=== PATIENT | male | born 1955 | race Hispanic/Latino ===

== ENCOUNTER 2021-04-06 14:02 | Emergency (ER) | payer OTHER ==
[2021-04-06 15:54] LABS: Potassium 3.4 mmol/L (3.5-5.1)
[2021-04-06 16:31] LABS: Basophils % 0.3 % (0-1.3); Hematocrit 40.9 % (39.6-49.0); Lymphocytes % 10.3 % (15.3-44.8); MPV 7.8 fL (7.6-11.3); RBC Red Blood Cell Count 4.89 M/uL (4.33-5.43)
[2021-04-06 17:18] LABS: Urine Blood 3+ (Negative); Urine Glucose Negative (Negative); Urine Protein 1+ (Negative)
--- NOTE | 2021-04-06 17:34 | ER ---
Nurse's Notes [facility] Name: Bhavin Marion Age: 65 yrs Sex: Male : 1955 Arrival Date: 04/06/2021 Time: 14:05 Bed 3 Private MD: Vu Cool R Diagnosis: Retention of urine, unspecified Presentation: 04/06 14:53 Chief complaint: Patient states: Urinary retention since last night. + dysuria. ll1 Coronavirus screen: Client denies travel out of the [place] in the last 14 days. At this time, the client does not indicate any symptoms associated with coronavirus-19. Ebola Screen: Patient denies travel to an Ebola-affected area in the 21 days before illness onset. Initial Sepsis Screen: Does the patient meet any 2 criteria? No. Patient's initial sepsis screen is negative. Does the patient have a suspected source of infection? Yes: Dysuria/Frequency/Urgency/UTI. Risk Assessment: Do you want to hurt yourself or someone else? Patient reports no desire to harm self or others. Onset of symptoms was April 05, 2021. 14:53 Method Of Arrival: Ambulatory ll1 14:53 Acuity: LIZBETH 3 ll1 Triage Assessment: 15:20 General: Appears well groomed, well developed, well nourished, Behavior is cooperative, es2 appropriate for age. Pain: Pain currently is 10 out of 10 on a pain scale. EENT: No signs and/or symptoms were reported regarding the EENT system. Neuro: Level of Consciousness is awake, alert, obeys commands, Oriented to person, place, time, situation, Appropriate for age Gait is steady, Speech is normal, Facial symmetry appears normal. Cardiovascular: Capillary refill < 3 seconds Patient's skin is warm and dry. Respiratory: Airway is patent Respiratory effort is even, unlabored, Respiratory pattern is regular, symmetrical. GI: Reports lower abdominal pain. : Reports inability to void, pain urgency. Derm: Skin is intact, Skin is dry, Skin is pink, warm \T\ dry. normal, Skin temperature is warm. Musculoskeletal: Capillary refill < 3 seconds, Range of motion: intact in all extremities. Historical: - Allergies: 14:51 Doxycycline; ll1 14:51 sulfamethoxazole-trimethoprim; ll1 - PMHx: 14:51 Hypertensive disorder; ll1 - PSHx: 14:51 R elbow; triple bypass; hernia repair x 2; back SX, L knee SX; heart stent; ll1 - Immunization history:: Client reports having NOT received the Covid vaccine. - Social history:: Smoking status: Patient/guardian denies using tobacco, the patient reports quitting approximately 8 years ago. - Family history:: not pertinent. - Hospitalizations: : No recent hospitalization is reported. Screenin:19 Abuse screen: Denies threats or abuse. Denies injuries from another. Nutritional es2 screening: No deficits noted. Tuberculosis screening: No symptoms or risk factors identified. Fall Risk None identified. IV access (20 points). Gait- Normal/Bed Rest/Wheelchair (0 pts). Assessment: 18:12 Reassessment: Patient and/or family updated on plan of care and expected duration. Pain es2 level reassessed. Patient is alert, oriented x 3, equal unlabored respirations, skin warm/dry/pink. General: Appears well groomed, well nourished, Behavior is calm, cooperative, appropriate for age. Pain: Pain currently is 8 out of 10 on a pain scale. Neuro: Level of Consciousness is awake, alert, obeys commands, Oriented to person, place, time, situation, Appropriate for age Gait is steady, Speech is normal. Cardiovascular: Capillary refill < 3 seconds Patient's skin is warm and dry. Respiratory: Airway is patent Respiratory effort is even, unlabored, Respiratory pattern is regular, symmetrical. GI: No signs and/or symptoms were reported involving the gastrointestinal system. : Reports burning with urination, inability to void, pain urgency. EENT: No signs and/or symptoms were reported regarding the EENT system. Derm: Skin is intact, Skin is dry, Skin is pink, warm \T\ dry. normal, Skin temperature is warm. Musculoskeletal: Capillary refill < 3 seconds, Range of motion: intact in all extremities. Vital Signs: 14:53 BP 168 / 93; Pulse 55; Resp 18; Temp 97.4; Pulse Ox 100% ; Weight 97.52 kg; Height 5 ll1 ft. 6 in. (167.64 cm); Pain 8/10; 18:10 BP 152 / 84; Pulse 62; Resp 18; Pulse Ox 100% on R/A; es2 14:53 Body Mass Index 34.70 (97.52 kg, 167.64 cm) ll1 ED Course: 14:05 Patient arrived in ED. am2 14:06 Vu Cool MD is Private Physician. am2 14:53 Arm band placed on. ll1 14:54 Triage completed. ll1 14:59 Jairo Ortiz MD is Attending Physician. rn 14:59 Rachael Packer RN is Primary Nurse. es2 15:19 Patient has correct armband on for positive identification. Bed in low position. Call es2 light in reach. 15:23 Warm blanket given. Pillow given. pit furnace melter on. Pulse ox on. NIBP on. mh5 15:29 Basic Metabolic Panel Sent. es2 15:29 CBC with Diff Sent. es2 15:29 Inserted saline lock: 20 gauge in left antecubital area, using aseptic technique. Blood es2 collected. 15:39 Valente cath inserted, using sterile technique, 18 Fr., by ED staff, balloon inflated, to es2 gravity drainage, urine specimen collected. 15:40 CBC with Diff Sent. es2 15:40 Basic Metabolic Panel Sent. es2 17:33 Anthony Kruse MD is Referral Physician. rn 18:11 No provider procedures requiring assistance completed. IV discontinued, intact, es2 bleeding controlled, No redness/swelling at site. Pressure dressing applied. Administered Medications: No medications were administered Outcome: 17:33 Discharge ordered by . rn 18:12 Discharged to home ambulatory. es2 18:12 Condition: stable 18:12 Discharge instructions given to patient, significant other, Instructed on discharge instructions, follow up and referral plans. medication usage, Demonstrated understanding of instructions, follow-up care, medications, Prescriptions given X 2. 18:20 Patient left the ED. es2 Signatures: Jairo Ortiz MD MD rn Martinez, Maria Leesa Zhou am2 Scott Vance RN RN 1 Rachael Packer RN RN es2
--- NOTE | 2021-04-06 17:34 | EDPHYS ---
Physician Documentation [facility] Name: Bhavin Marion Age: 65 yrs Sex: Male : 1955 Arrival Date: 04/06/2021 Time: 14:05 Bed 3 Private MD: Vu Cool R ED Physician Jairo Ortiz HPI: 04/06 15:11 This 65 yrs old Male presents to ER via Ambulatory with complaints of Urinary rn Retention. 15:11 The patient presents with urinary symptoms, retention, unable to void. Onset: The rn symptoms/episode began/occurred yesterday. Modifying factors: The symptoms are alleviated by nothing, the symptoms are aggravated by pressure. Associated signs and symptoms: Pertinent positives: abdominal pain, Pertinent negatives: fever, hematuria, vomiting. Severity of symptoms: At their worst the symptoms were moderate, in the emergency department the symptoms are unchanged. The patient has experienced a previous episode. The patient has not recently seen a physician. Patient reports unable to void since last night. States dribbling. Has had prostate problems in the past as well as one episode of urinary retention following surgical procedure. States used to take prostate medication but is no longer. No fever. Reports fullness of bladder and unable to urinate.. Historical: - Allergies: 14:51 Doxycycline; ll1 14:51 sulfamethoxazole-trimethoprim; ll1 - PMHx: 14:51 Hypertensive disorder; ll1 - PSHx: 14:51 R elbow; triple bypass; hernia repair x 2; back SX, L knee SX; heart stent; ll1 - Immunization history:: Client reports having NOT received the Covid vaccine. - Social history:: Smoking status: Patient/guardian denies using tobacco, the patient reports quitting approximately 8 years ago. - Family history:: not pertinent. - Hospitalizations: : No recent hospitalization is reported. ROS: 15:11 Constitutional: Negative for fever, chills, and weight loss, Eyes: Negative for injury, rn pain, redness, and discharge, Neck: Negative for injury, pain, and swelling, Cardiovascular: Negative for chest pain, palpitations, and edema, Respiratory: Negative for shortness of breath, cough, wheezing, and pleuritic chest pain, Abdomen/GI: Negative for vomiting, diarrhea, and constipation, Back: Negative for injury and pain, : Positive for urinary retention and pain MS/Extremity: Negative for injury and deformity, Skin: Negative for injury, rash, and discoloration, Neuro: Negative for headache, weakness, numbness, tingling, and seizure. 15:11 All other systems are negative. Exam: 15:11 Constitutional: This is a well developed, well nourished patient who is awake, alert, rn and in no acute distress. Head/Face: Normocephalic, atraumatic. Eyes: Periorbital areas with no swelling, redness, or edema. Cardiovascular: Bradycardic, regular.. No pulse deficits. Respiratory: No increased work of breathing, no retractions or nasal flaring. Abdomen/GI: Soft, mild suprapubic tenderness and fullness. Skin: Warm, dry MS/ Extremity: Pulses equal, no cyanosis. Neuro: Awake and alert, GCS 15, 5 out of 5 strength bilateral lower extremities with normal sensation. Vital Signs: 14:53 BP 168 / 93; Pulse 55; Resp 18; Temp 97.4; Pulse Ox 100% ; Weight 97.52 kg; Height 5 ll1 ft. 6 in. (167.64 cm); Pain 8/10; 18:10 BP 152 / 84; Pulse 62; Resp 18; Pulse Ox 100% on R/A; es2 14:53 Body Mass Index 34.70 (97.52 kg, 167.64 cm) ll1 MDM: 14:59 Patient medically screened. rn 17:30 Differential diagnosis: UTI, urinary retention, prostatitis, urethritis. Data reviewed: rn vital signs, nurses notes, lab test result(s), and as a result, I will discharge patient. Counseling: I had a detailed discussion with the patient and/or guardian regarding: the historical points, exam findings, and any diagnostic results supporting the discharge/admit diagnosis, lab results, the need for outpatient follow up, to return to the emergency department if symptoms worsen or persist or if there are any questions or concerns that arise at home. Special discussion: I discussed with the patient/guardian in detail that at this point there is no indication for admission to the hospital. It is understood, however, that if the symptoms persist or worsen the patient needs to return immediately for re-evaluation. Based on the history and exam findings, there is no indication for further emergent testing or inpatient evaluation. I discussed with the patient/guardian the need to see the urologist for further evaluation of the symptoms. ED course: Remarkably improved after Valente catheter placed. A little bloody initially but clearing. Urine does not show UTI. Will DC home with urology follow-up, Flomax, antibiotics and return precautions. Told if cannot find urology appointment in the next 2 weeks to return here for voiding trial.. 04/06 15:09 Order name: CBC with Diff; Complete Time: 16:45 04/06 15:09 Order name: Basic Metabolic Panel; Complete Time: 16:14 04/06 15:09 Order name: IV Start; Complete Time: 15:29 rn 04/06 15:09 Order name: Urine Culture 04/06 15:09 Order name: Urine Microscopic Only 04/06 17:18 Order name: Urine Dipstick-Ancillary; Complete Time: 17:30 EDMN 04/06 15:09 Order name: Urine Dipstick-Ancillary (obtain specimen); Complete Time: 18:11 04/06 15:09 Order name: Bladder Scanner 04/06 16:11 Order name: Labs - recollect needed: recollect lavender tube; Complete Time: 18:11 04/06 16:22 Order name: Labs - recollect needed: recollect purple tube; Complete Time: 18:11 bd Administered Medications: No medications were administered Disposition Summary: 04/06/21 17:33 Discharge Ordered Location: Home rn Problem: new rn Symptoms: have improved rn Condition: Stable rn Diagnosis - Retention of urine, unspecified rn Followup: rn - With: Anthony Kruse MD - When: 1 week - Reason: Recheck today's complaints, Re-evaluation by your physician Discharge Instructions: - Discharge Summary Sheet rn - Indwelling Urinary Catheter Care, Adult rn - Acute Urinary Retention, Male rn Forms: - Medication Reconciliation Form rn - Thank You Letter rn - Antibiotic pr intern - Prescription Opioid Use rn Prescriptions: - tamsulosin 0.4 mg Oral capsule - take 1 capsule by ORAL route once daily 1/2 hour following the same meal each rn day; 30 capsule; Refills: 0, Product Selection Permitted - Cipro 500 mg Oral Tablet - take 1 tablet by ORAL route every 12 hours for 10 days; 20 tablet; Refills: 0, rn Product Selection Permitted Signatures: Dispatcher [employer] Rosie Carbajal Roman, MD MD rn Lindsay Dickinson, RN RN ss Scott Vance RN RN ll1
[2021-04-06 18:07] LABS: Urine Bacteria <20 /HPF (NONE SEEN); Urine Mucus 1+ /HPF (NONE SEEN)
[2021-04-06 19:59] VITALS: TEMP 97.4; O2SAT 100
[2021-04-06 20:01] VITALS: BP 152/84
== END 2021-04-06 18:20 | disposition home or self-care (01) ==
LOC: ER 14:02
DX: R33.9 Retention of urine, unspecified (principal); I10 Essential (primary) hypertension; Z95.1 Presence of aortocoronary bypass graft; Z95.818 Presence of other cardiac implants and grafts; Z88.1 Allergy status to other antibiotic agents; Z88.2 Allergy status to sulfonamides
CPT/HCPCS: 36415; 51702; 80048; 81003; 81015; 85025; 87086; 87088; 99285

== ENCOUNTER 2023-09-21 15:02 | Inpatient (IN) | payer OTHER ==
[2023-09-21] MEDS ORDERED: ONDANSETRON 4 MG/2 ML VIAL IV PRN (15:56)
[2023-09-21] MEDS ORDERED: OXYBUTYNIN ER 5 MG TAB PO PRN (15:56)
[2023-09-21] MEDS ORDERED: NACL 0.9% IRRG SOLN 1000 ML IRR PRN (15:56)
[2023-09-21 16:05] VITALS: BMI 34.3
[2023-09-21] MEDS: NA CHLORIDE 0.9% 1,000 ML IV SCH (16:42)
[2023-09-21] MEDS: CIPROFLOXACIN HCL 500 MG TAB PO SCH (17:08)
[2023-09-21] MEDS: SODIUM CHL 0.9% IRR SOLN 2000 ML IRR SCH (17:20)
[2023-09-21] MEDS: INFLUENZA VACCINE (for 6+ mo) 0.5 ML DOSE IMVAC ONE (18:00)
[2023-09-21] MEDS ORDERED: FENTANYL CITR 250 MCG/5 ML ONE (18:55)
[2023-09-21] MEDS ORDERED: MIDAZOLAM HCL 2 MG/2 ML INJ ONE (18:55)
[2023-09-21] MEDS ORDERED: propofoL 200 MG/20 ML VIAL IV ONE (18:55)
[2023-09-21] MEDS ORDERED: LIDOCAINE 1% MPF 5 ML VIAL ONE (18:56)
[2023-09-21] MEDS ORDERED: ONDANSETRON 4 MG/2 ML VIAL ONE (18:56)
[2023-09-21] MEDS ORDERED: KETOROLAC 30 MG/ML INJ ONE (18:56)
[2023-09-21] MEDS ORDERED: dexAMETHasone 10 MG/ML VIAL ONE ×2 (19:00→20:21)
[2023-09-21] MEDS ORDERED: FENTANYL CITR 100 MCG/2 ML ONE (19:01)
[2023-09-21] MEDS: NA CHLORIDE 0.9% 1,000 ML ONE (21:25)
--- NOTE | 2023-09-21 22:31 | RAD REPORT ---
EXAM DESCRIPTION: Ricky Single View09/21/2023 10:24 pm CLINICAL HISTORY: ?ASPIRATION COMPARISON: 07/27/2023 TECHNIQUE: Portable AP view of the chest. FINDINGS: Patient rotation somewhat limits evaluation. Allowing for this, no focal airspace opacitie s. No pneumothorax or effusion. The cardiomediastinal contours are unchanged, with mild cardiomegaly and sequelae of prior CABG. IMPRESSION: No acute pulmonary process. Suspected mild cardiomegaly.
--- NOTE | 2023-09-21 22:52 | P.HP ---
Certification for Inpatient Patient admitted to: Observation With expected LOS: <2 Midnights Patient will require the following post-hospital care: None Practitioner: I am a practitioner with admitting privileges, knowledge of patient current condition, hospital course, and medical plan of care. Services: Services provided to patient in accordance with Admission requirements found in Title 42 Section 412.3 of the Code of Federal Regulations Patient History Date of Service: 09/21/23 Reason for admission: Refractory gross hematuria History of Present Illness: 67-year-old gentleman with hypertension, CHF status post CABG x 3 on Xarelto 20 mg daily, with BPH with LUTS complicated by acute urinary retention on 3 separate occasions previously and elevated PSA. Transrectal ultrasonography revealed a 143 g prostate, and he underwent cystoscopy revealing significant prostatic urethral obstruction. 24 core prostate biopsy was completed 07/05/2023 revealing a 137.2 g gland, PSA density 0.04, and no malignancy was seen. So he was counseled on options for management of his prostatic urethral obstruction to prevent recurrent episodes of urinary retention, and among the options discussed in detail, he elected to proceed with suprapubic prostatectomy. Because he had a history of multiple hernia repairs with mesh, the likelihood of significant intra-abdominal adhesions was great; so the open approach was recommended. He underwent open suprapubic prostatectomy on 09/14/2023 without complication. Postoperatively, there was a significant degree of hematuria, as expected, and that did seem to decrease over the course of the next 2 days of inpatient observation at [facility]. On postop day 2, the urine was light pink on slow drip CBI; so we attempted to clamp the CBI, but the urine would promptly become bloody again with clots. As a result, the catheter was placed to traction for several hours, and was taken down when CBI was light pink to clear on slow drip. Subsequent attempts at clamping the CBI again failed with recurrent significant pink urine. On postoperative day 3, the patient spiked a fever to 101. Chest x-ray was obtained and negative. Urine cultures and blood cultures were also obtained. He was placed on cefepime and vancomycin broad-spectrum antimicrobial therapy. He was previously given Ancef perioperatively and then transition to Keflex twice daily. He had no further fevers, and despite further attempts at catheter manipulation with traction, each time CBI would be discontinued with the catheter off traction, his urine would become bloody again. As a result, on postoperative day 7, I made the decision to take him back for cystoscopic exploration, clot evacuation if necessary, and fulguration to stop the bleeding. His hematocrit had slowly trended down over the course of the 7 days to a reyes of 8.6 approximately; so, given his cardiac history, I recommended a unit of packed red blood cells to prevent untoward event on Monday. His posttransfusion hemoglobin was 10, and plans were made for transfer to [facility] for surgical management as above. Transfer was delayed by 24 hours for multiple reasons including lack of availability of an ambulance, and he arrived this afternoon. 09/21/2023 labs from [facility]: Hemoglobin 9.4, WBC 10.2 down from 17.5, creatinine 0.68. Urine culture 20-29 K pansensitive Pseudomonas. Blood cultures negative Examination: Patient well-appearing and in no acute distress Alert, awake, oriented x 3 No dyspnea or sign of respiratory distress Abdomen soft, nontender, nondistended Lower midline incision clean, dry, intact No lower extremity edema or tenderness Urethral Valente catheter to very slow drip CBI with urine very clear to light pink, and suprapubic Malecot catheter to gravity drainage also minimally pink. Allergies doxycycline Allergy (Verified 09/10/14 09:08) Itching/Hives/Rash sulfamethoxazole [From Bactrim] Allergy (Verified 09/10/14 09:08) Itching/Hives/Rash trimethoprim [From Bactrim] Allergy (Verified 09/10/14 09:08) Itching/Hives/Rash Home medications list reviewed: Yes Home Medications: Amlodipine [Norvasc*] 0.5 tab PO DAILY 09/10/14 Aspirin Tab [Kallie Aspirin*] 81 mg PO DAILY 09/10/14 Losartan/Hydrochlorothiazide [Losartan-Hctz 100-25 mg Tab] 1 tab PO DAILY 09/10/14 carvediloL [Coreg*] 1 tab PO 1X 09/10/14 Ezetimibe [Zetia] 10 mg PO DAILY 09/21/23 Spironolactone 25 mg PO DAILY 09/21/23 Tamsulosin [Flomax] 0.4 mg PO DAILY 09/21/23 - Past Medical/Surgical History Has patient received pneumonia vaccine in the past: Yes Diabetic: No -: 2007 Heart bypass -: Left knee arthroplasty 2019 -: Hernia rt 1979 and 2008 -: Rt elbow fx 1966 -: L4-5 screws/rods 1998 - Social History Smoking Status: Former smoker Alcohol use: No CD- Drugs: No Caffeine use: Yes Place of Residence: Home Physical Examination - Vital Signs Temperature: 97 F Blood Pressure: 156/85 Pulse: 78 Respirations: 19 Pulse Ox (%): 98 Assessment and Plan - Plan Assessment and recommendation: 67-year-old gentleman with hypertension, CHF status post CABG x 3 on Xarelto 20 mg daily, with BPH with LUTS complicated by acute urinary retention on 3 separate occasions s/p negative TRUS guided prostate biopsy revealing approximately 140 g gland s/p open suprapubic prostatectomy complicated by persistent postoperative gross hematuria ultimately requiring a transfusion. -I counseled the patient and his that at this point, operative evaluation would be required to assess the source of the chronic oozing and to try to stop it. I explained the procedure to include cystoscopic evaluation with possible clot evacuation and fulguration, and I explained the potential need for open conversion if control cannot be obtained transurethrally. -Consent signed and questions answered Discharge Plan: Home Plan to discharge in: 24 Hours - Advance Directives Does patient have a Living Will: No Does patient have a Durable POA for Healthcare: No - Code Status/Comfort Care Code Status Assessed: No Code Status: Full Code Time Spent Managing Pts Care (In Minutes): 60
[2023-09-21] MEDS ORDERED: HYDROCODONE/APAP 5/325 MG TAB PO PRN (23:02)
[2023-09-21] MEDS ORDERED: PHENAZOPYRIDINE 100MG TAB PO PRN (23:04)
[2023-09-21] MEDS ORDERED: DIAZEPAM 5 MG TABLET PO PRN (23:07)
--- NOTE | 2023-09-21 23:18 | P.OP ---
Date of Service: 09/21/23 Preoperative diagnoses: BPH with obstruction/LUTS History of acute urinary retention History of complicated UTI s/p open suprapubic prostatectomy Refractory gross hematuria Postoperative diagnoses: Same Principal procedures: Cystoscopy Clot evacuation Transurethral resection of prostatic urethral clot Transurethral fulguration of prostatic fossa Indication for procedure: This is a 67-year-old gentleman with multiple medical comorbidities and 140 g gland with a history of acute urinary retention on 3 occasions who underwent suprapubic prostatectomy complicated by persistent gross hematuria eventually transfusion requiring. Operative intervention to quell the bleeding was recommended. Procedure note: The patient was consented in the preoperative holding area before being transferred to the operative suite where general anesthesia was induced. He was given ciprofloxacin 500 mg oral antimicrobial therapy at 5 PM in preparation for anticipated surgery between 7 and 8 PM. Pneumoboots were provided for DVT prophylaxis. He was placed in the lithotomy position, padded and secured to the table appropriately. The urethral Valente catheter balloon was deflated, and the catheter was removed. His genitalia was prepped with Hibiclens and he was draped in standard fashion. There was significant edema of the foreskin; so the inner component of the foreskin around the glans was washed with Betadine before I then utilized a 26 [place] bipolar resectoscope and a visual obturator to traverse the urethra and navigate beyond some visualization obscured clot in the prostate fossa in order to enter the bladder. With continuous irrigation, I was able to visualize around the bladder and then navigate back to the bladder neck where I then surveyed the prostate fossa for sources of bleeding. No discrete arterial bleeding was noted, but there was generalized venous oozing everywhere. I tried to easily evacuate the clot from the prostate fossa, but this would not dislodge it as it was very firmly adherent to the prostatic urethral sidewall. So eventually, I had to utilize the resectoscope to resect the clot out of the sidewall until I got down to the level of evident prostate tissue. At this point, I was able to identify discrete vessel oozing, and fulgurate each spot of oozing. This required an extensive degree of resection and follow-up fulguration, all total about 2 hours of operative time in order to completely rid the prostate fossa of clot obscuring the underlying venous bleeding, and complete the fulguration accordingly. During the entirety of the procedure, the Malecot suprapubic catheter was left to drainage, but was placed such there was approximately 20 to 30 cm of water pressure before it would exit out the suprapubic catheter. All of the resected clot was easily evacuated from the bladder and direct visualized removed from the prostate fossa until I was satisfied that the entirety of the prostate fossa was hemostatic with the bladder decompressed and a trickle of irrigant flow in keeping the inflow and outflow absolutely equal with very low pressure. With no bleeding noted then, I further decompressed his bladder with no fluid inflow and only fluid exiting, and fulgurated any trickles of blood seen until ultimately the entire area was 100% hemostatic with no oozing at all noted. I then ensured that all blood clot chips had been removed from the bulbar urethra or the prostatic urethra or the bladder, and once I was confident of this, I removed the resectoscope. I did not replace a urethral Valente catheter, instead, leaving the suprapubic catheter to drainage. As a result, the patient was taken out of the lithotomy position, awakened from general anesthesia, transferred to a stretcher, and then transferred to the recovery room in good condition. Complications: None Discharge disposition: We will leave the Malecot suprapubic catheter to gravity drainage overnight with approximately 10 to 20 cm of water pressure elevation of the tubing to diminish the degree of bladder spasms that he might have. If his urine remains minimally pink to clear in the morning, we will resume his baby aspirin for cardiac protection, and anticipate subsequent discharge. A.m. labs will be obtained to ensure adequate hemoglobin/hematocrit on discharge. He will be provided with iron, multivitamin and folate, and this will be continued on discharge. Findings and Operative Technique
[2023-09-21 23:31] VITALS: O2SAT 97
--- NOTE | 2023-09-22 00:10 | P.PN ---
Date of Service: 09/22/23 Postop check: Night of surgery s/p cystoscopy, TUR of formed prostatic urethral clot/clot evacuation, and extensive prostatic urethral fulguration Patient seen at bedside, awake, alert, oriented and doing well. His and her sister were also present. He was well communicative and sitting up in bed eating crackers. The suprapubic catheter was secured and draining clear yellow urine with minimal tinge of pink He expressed potential desire to do a bowel movement, but I encouraged him to wait until the morning if possible at which point we could give him a suppository to encourage a better bowel movement. Tonight, I recommended he rest to allow for the stabilization of the prostatic fossa and to minimize the risk of recurrent bleeding. Plan: A.m. labs, and if hemoglobin stable and adequate, and urine remains clear, discharged home with suprapubic catheter to drainage, Ditropan extended release 10 mg daily, pain management, and Cipro for the next 7 days. Voiding trial in approximately 1 week (7-10 days) Obtain a cystogram prior to voiding trial Iron, multivitamin, folic acid for anemia
[2023-09-22 03:41] LABS: Absolute Lymphocytes (CBC) 0.5 K/uL (0.7-4.9); Basophils % 0.2 % (0-1.3); Lymphocytes % 4.6 % (15.3-44.8); MCV 82.8 fL (80-100); MPV 6.9 fL (7.6-11.3); Platelets 349 thou/uL (152-406); RBC Red Blood Cell Count 3.62 M/uL (4.33-5.43)
[2023-09-22 03:56] LABS: Anion Gap 8.1 mEq/L (5.0-15.0); Potassium 4.1 mEq/L (3.5-5.1)
[2023-09-22 04:19] LABS: Blood Morphology Comment NOT SEEN (NOT SEEN); Platelet Estimate ADEQ
[2023-09-22] MEDS: carvediloL 25 MG TAB PO SCH (06:00)
[2023-09-22] MEDS: LOSARTAN POTASSIUM 50 MG TABLET PO SCH (09:00)
[2023-09-22] MEDS: FE SULF/FA/VIT B COMP & C TAB PO SCH (09:11)
[2023-09-22] MEDS: hydroCHLOROthiazide 25 MG TAB PO SCH (09:11)
[2023-09-22] MEDS: AMLODIPINE 5 MG TAB PO SCH (09:11)
[2023-09-22] MEDS: SPIRONOLACTONE 25 MG TABLET PO SCH (09:11)
[2023-09-22 11:31] VITALS: BP 123/75; TEMP 98.1
--- NOTE | 2023-09-22 14:48 | P.DS ---
Admission Date: 09/21/23 Discharge Date: 09/22/23 Discharge Condition: GOOD Reason for Admission: Refractory gross hematuria Brief History of Present Illness: 67-year-old gentleman with hypertension, CHF status post CABG x 3 on Xarelto 20 mg daily, with BPH with LUTS complicated by acute urinary retention on 3 separate occasions previously and elevated PSA. Transrectal ultrasonography revealed a 143 g prostate, and he underwent cystoscopy revealing significant prostatic urethral obstruction. 24 core prostate biopsy was completed 07/05/2023 revealing a 137.2 g gland, PSA density 0.04, and no malignancy was seen. So he was counseled on options for management of his prostatic urethral obstruction to prevent recurrent episodes of urinary retention, and among the options discussed in detail, he elected to proceed with suprapubic prostatectomy. Because he had a history of multiple hernia repairs with mesh, the likelihood of significant intra-abdominal adhesions was great; so the open approach was recommended. Hospital Course: He underwent open suprapubic prostatectomy on 09/14/2023 without complication. Postoperatively, there was a significant degree of hematuria, as expected, and that did seem to decrease over the course of the next 2 days of inpatient observation at [facility]. On postop day 2, the urine was light pink on slow drip CBI; so we attempted to clamp the CBI, but the urine would promptly become bloody again with clots. As a result, the catheter was placed to traction for several hours, and was taken down when CBI was light pink to clear on slow drip. Subsequent attempts at clamping the CBI again failed with recurrent significant pink urine. On postoperative day 3, the patient spiked a fever to 101. Chest x-ray was obtained and negative. Urine cultures and blood cultures were also obtained. He was placed on cefepime and vancomycin broad-spectrum antimicrobial therapy. He was previously given Ancef perioperatively and then transition to Keflex twice daily. He had no further fevers, and despite further attempts at catheter manipulation with traction, each time CBI would be discontinued with the catheter off traction, his urine would become bloody again. As a result, on postoperative day 7, I made the decision to take him back for cystoscopic exploration, clot evacuation if necessary, and fulguration to stop the bleeding. His hematocrit had slowly trended down over the course of the 7 days to a reyes of 8.6 approximately; so, given his cardiac history, I recommended a unit of packed red blood cells to prevent untoward event on Monday. His posttransfusion hemoglobin was 10, and plans were made for transfer to [facility] for surgical management as above. 09/21/2023 labs from [facility]: Hemoglobin 9.4, WBC 10.2 down from 17.5, creatinine 0.68. Urine culture 20-29 K pansensitive Pseudomonas. Blood cultures negative 09/21/2023 operative cystoscopy, transurethral resection of prostatic urethral formed clot, and fulguration to stop the bleeding. Postoperatively, the patient was left without a urethral Valente catheter, and the suprapubic catheter/Malecot was left to drainage. The urine was crystal clear initially, and after he was awakened eventually became only pink-tinged. Over the next several hours of observation, the urine remained clear. The patient did well overnight and this morning got up and had a bowel movement. He has been ambulating well and with ease, and noted a degree of incontinence via his urethra. That apparently occurred at 1 point but then resolved. Examination: Patient well-appearing and in no acute distress Alert, awake, oriented x 3 No dyspnea or sign of respiratory distress Abdomen soft, nontender, nondistended Lower midline incision clean, dry, intact No lower extremity edema or tenderness Urine from his suprapubic catheter translucent orange-yellow/Pyridium colored Vital Signs/Physical Exam: Temp Pulse Resp BP Pulse Ox 98.1 F 71 19 123/75 96 09/22/23 08:00 09/22/23 08:00 09/22/23 08:00 09/22/23 08:00 09/22/23 08:00 Laboratory Data at Discharge: WBC 11.80 thou/uL (4.3-10.9) H 09/22/23 03:30 Hgb 9.9 g/dL (13.6-17.9) L 09/22/23 03:30 Hct 30.0 % (39.6-49.0) L 09/22/23 03:30 Plt Count 349 thou/uL (152-406) 09/22/23 03:30 Sodium 141 mEq/L (136-145) 09/22/23 03:30 Potassium 4.1 mEq/L (3.5-5.1) 09/22/23 03:30 BUN 7 mg/dL (7-18) 09/22/23 03:30 Creatinine 0.62 mg/dL (0.70-1.30) L 09/22/23 03:30 Glucose 165 mg/dL (74-106) H 09/22/23 03:30 Home Medications: Amlodipine [Norvasc*] 0.5 tab PO DAILY 09/10/14 Aspirin Tab [Kallie Aspirin*] 81 mg PO DAILY 09/10/14 Losartan/Hydrochlorothiazide [Losartan-Hctz 100-25 mg Tab] 1 tab PO DAILY 09/10/14 carvediloL [Coreg*] 1 tab PO DAILY 09/10/14 Ezetimibe [Zetia*] 10 mg PO DAILY 09/21/23 Spironolactone 25 mg PO DAILY 09/21/23 Ciprofloxacin HCl [Cipro 500 MG Tablet] 500 mg PO BID #20 tab 09/22/23 Hydrocodone 5/APAP 325 [Tyner 5/325*] 1 tab PO Q6H PRN #15 tab 09/22/23 Iron Fumarate/Vit C/Vit B12/FA [Hematogen Forte Softgel] 1 each PO DAILY #14 cap 09/22/23 oxyBUTYnin chloride [Ditropan Xl*] 10 mg PO DAILY PRN #10 tab.sa 09/22/23 New Medications: Ciprofloxacin HCl [Cipro 500 MG Tablet] 500 mg PO BID #20 tab oxyBUTYnin chloride [Ditropan Xl*] 10 mg PO DAILY PRN #10 tab.sa PRN Reason: Bladder Spasms Iron Fumarate/Vit C/Vit B12/FA [Hematogen Forte Softgel] 1 each PO DAILY #14 cap Hydrocodone 5/APAP 325 [Tyner 5/325*] 1 tab PO Q6H PRN #15 tab PRN Reason: Pain Scale 5-7 (Moderate) Physician Discharge Instructions: You will go home with the suprapubic catheter, which is secured to your skin via a suture, and the tubing should remain secured to your thigh to prevent it accidentally being pulled and dislodged. This should be kept to gravity drainage while your bladder has an opportunity to continue to heal from the surgery. We will plan to begin capping the suprapubic catheter, once the bladder is completely healed, and allow you the opportunity to urinate the normal way, via the penis. Contact my office to arrange to be seen on 10/02/2023, or 10/03/2023, with the nurses in my office to begin this process. In the meantime, as your bladder is healing, it may spasm. Associated with those spasms, you may leak urine from the penis as there is nothing to stop it from coming out because the prostate blockage has been removed. Please take the oxybutynin/Ditropan XL daily to minimize the spasms. Please take MiraLAX, which you can purchase [id number], daily to keep your stools soft and avoid the need to strain to have a bowel movement. If you feel constipated, you may purchase either some milk of magnesia, [id number], or a Dulcolax suppository to encourage ease of having a bowel movement. Notify me if you develop any fever (temperature greater than 100.4 Fahrenheit), intractable nausea or vomiting, increasing pain not controlled by pain medications, or other unusual signs or symptoms. It is common to see some blood in the urine. It will be light pink/cranberry colored initially, and then it will become dark or tea colored, when the blood gets old and oxidizes in the urine, before it finally clears up. It is only a concern if you note bright red and thick/nontranslucent (not see-through) blood in the urine that appears like tomato juice. Notify me if you feel the urge to urinate but the suprapubic catheter is not draining after more than 30 minutes of observation. At this point, you may shower, but avoid scrubbing the surgical incision site. Avoid tub baths, or submersion in pools or hot tubs at this time. Avoid strai jose or heavy lifting, and avoid lifting anything more than around 20 pounds for the next 5 to 6 weeks. As we discussed, you will notice that I recommended you start taking a baby aspirin again. This is for protection associated with your heart conditions until we can safely allow you to resume the Xarelto. Unfortunately at this time, if you resume the Xarelto, it would stir up significant bleeding all over again. I have sent a prescription for a narcotic, Tyner/hydrocodone plus acetaminophen, to your pharmacy. Please note, it contains Tylenol/acetaminophen. If you do not require the narcotic for pain management, you may take plain Tylenol (up to 1000 mg every 6 hours maximum) and alternate this every 4 hours with Motrin/ibuprofen (up to 800 mg every 8 hours maximum) for your pain. Please take note and keep the total 24-hour daily dose of Tylenol/acetaminophen less than 4000 mg / 4 g from all sources. You may purchase [id number] Azo (Pyridium) if you have burning with [place]. Please note, it will turn your urine bright orange. Please contact my office to arrange follow-up with me in approximately 4 weeks. All the best WBR Diet: AHA Activity: no straining/heavy lifting for 6 weeks Followup: Anthony Kruse [Primary Care Provider] - Time spent managing pt's care (in minutes): 60
[2023-09-22] MEDS ORDERED: EZETIMIBE 10 MG TAB PO SCH (21:00)
== END 2023-09-22 18:26 | disposition home or self-care (01) | DRG 989 ==
LOC: 4TH 15:02
PROVIDERS: ADMIT Urology; ATTEND Urology
PROC: 0V508ZZ Destruction of Prostate, Via Natural or Artificial Opening Endoscopic (ICD-10-PCS; principal; 2023-09-21 19:00)
DX: N99.820 Postprocedural hemorrhage of a genitourinary system organ or structure following a genitourinary system procedure (principal); I10 Essential (primary) hypertension; N40.1 Benign prostatic hyperplasia with lower urinary tract symptoms; B96.5 Pseudomonas (aeruginosa) (mallei) (pseudomallei) as the cause of diseases classified elsewhere; R33.8 Other retention of urine; R31.0 Gross hematuria; Z88.1 Allergy status to other antibiotic agents; Z95.1 Presence of aortocoronary bypass graft; Z79.01 Long term (current) use of anticoagulants; Z90.79 Acquired absence of other genital organ(s); Z79.82 Long term (current) use of aspirin; Z79.02 Long term (current) use of antithrombotics/antiplatelets; Z79.899 Other long term (current) drug therapy; Z96.652 Presence of left artificial knee joint; Z87.891 Personal history of nicotine dependence; Y83.8 Other surgical procedures as the cause of abnormal reaction of the patient, or of later complication, without mention of misadventure at the time of the procedure
CPT/HCPCS: 36415; 71045; 80048; 85025; J1100; J2001; J2250; J2405; J2704; J3010; J7030